=== PATIENT | female | born 1975 | race Two or more races ===

== ENCOUNTER 2017-08-01 09:57 | Day surgery (SDC) | payer OTHER ==
[~2017-08-01] VITALS: Ht 172.7 cm; Wt 131.0 kg
[~2017-08-01 09:57] MED LIST: ALL DAY ALLERGY10 M3 PO; BUSPAR15 MG PO; COZAAR50 MG PO; DIPROSONE 0.05%15 G1 TP; GLUCOPHAGE1000 MG PO; GLUCOTROL5 MG PO; LIPITOR20 MG PO; LODINE XL400 MG PO; NEURONTIN300 MG PO; PROTONIX40 MG PO; VENLAFAXINE HC150 M1 PO
[2017-08-01 10:33] VITALS: BP 127/81
[2017-08-01 11:07] LABS: POINT-OF-CARE METER ID UU14174212
[2017-08-01] MEDS ORDERED: NORCO 5/3251 TABLET PO (15:13)
[2017-08-01 15:36] LABS: POINT-OF-CARE METER ID UU13113675
[2017-08-01 16:46] VITALS: BP 122/70
[2017-08-01 17:24] VITALS: BP 126/68
== END 2017-08-01 17:33 | disposition home or self-care (01) ==
LOC: SDC 09:57
PROVIDERS: Obstetrics & Gynecology
PROC: 0UL78DZ Occlusion of Bilateral Fallopian Tubes with Intraluminal Device, Via Natural or Artificial Opening Endoscopic (ICD-10-PCS; principal; 2017-08-01)
DX: Z30.2 Encounter for sterilization (principal); N92.0 Excessive and frequent menstruation with regular cycle; I10 Essential (primary) hypertension; F41.8 Other specified anxiety disorders; E78.5 Hyperlipidemia, unspecified; M79.7 Fibromyalgia; E11.9 Type 2 diabetes mellitus without complications; K21.9 Gastro-esophageal reflux disease without esophagitis; E66.01 Morbid (severe) obesity due to excess calories; Z68.41 Body mass index [BMI] 40.0-44.9, adult; Z79.84 Long term (current) use of oral hypoglycemic drugs
CPT/HCPCS: 82948; 93005; J0131; J0330; J1170; J1885; J2250; J2405; J2710; J2765; J3010; S0020

== ENCOUNTER → 2017-12-30 | Outpatient (CLI) | payer OTHER ==
[~2017-12-30] VITALS: Ht 172.7 cm; Wt 127.9 kg
[~2017-12-30] MED LIST changes: +JANUVIA100 MG PO; +NON-ASPIRIN PA500 M1 PO; +NORCO 5/3251 TABLET PO
== END | disposition home or self-care (01) ==
LOC: AMB 12:00
PROVIDERS: Internal Medicine
DX: K62.1 Rectal polyp (principal); K21.9 Gastro-esophageal reflux disease without esophagitis; R19.7 Diarrhea, unspecified; R14.2 Eructation; Z82.49 Family history of ischemic heart disease and other diseases of the circulatory system; Z83.3 Family history of diabetes mellitus; Z83.49 Family history of other endocrine, nutritional and metabolic diseases
CPT/HCPCS: 82948; 88305; J2250

== ENCOUNTER 2018-03-09 16:28 | Emergency (ER) | payer OTHER ==
[~2018-03-09] VITALS: Ht 172.7 cm; Wt 127.9 kg
[2018-03-09 17:13] LABS: HEMATOCRIT 39.3 % (36.0-46.0); HEMOGLOBIN 12.8 G/DL (11.9-15.5); MCH 26.5 PG (29.0-34.0); MCHC 32.6 G/DL (30.0-36.0); MCV 81.4 FL (83-99); PLATELET COUNT 326 K/uL (156-360); RBC DIS.WIDTH-CV 15.6 % (11.8-14.6); RBC DIS.WIDTH-SD 46.5 % (39-53); RED BLOOD COUNT 4.83 M/uL (3.80-5.20)
[2018-03-09 17:24] LABS: CHLORIDE 104 mEq/L (99-109); SODIUM 139 mEq/L (136-147)
[2018-03-09 17:26] LABS: GLUCOSE 114 mg/dL (70-99)
[2018-03-09 17:29] LABS: SERUM ETHYL ALCOHOL < 10 mg/dL
[2018-03-09 17:30] LABS: CREATININE 0.7 mg/dL (0.6-1.3); GFR ESTIMATE (CALCULATED) > 59 mL/min/
[2018-03-09 17:31] LABS: UREA NITROGEN (BUN) 12 mg/dL (9-23)
[2018-03-09 17:37] LABS: AMPHETAMINE NEGATIVE (500 ng/mL); BARBITURATES NEGATIVE (200 ng/mL); BENZODIAZEPINES NEGATIVE (150 ng/mL); BUPRENORPHINE NEGATIVE (10 ng/mL); COCAINE NEGATIVE (150 ng/mL); METHADONE NEGATIVE (200 ng/mL); METHAMPHETAMINE NEGATIVE (500 ng/mL); OPIATES (MORPHINE) NEGATIVE (100 ng/mL); OXYCODONE NEGATIVE (100 ng/mL); PHENCYCLIDINE NEGATIVE (25 ng/mL); PROPOXYPHENE NEGATIVE (300 ng/mL); THC CANNABINOIDS NEGATIVE (50 ng/mL); TRICYCLIC ANTIDEPRESSANTS NEGATIVE (300 ng/mL)
[2018-03-09 18:49] VITALS: BP 147/89
== END 2018-03-09 18:51 | disposition home or self-care (01) ==
LOC: EME 16:28
DX: F32.9 Major depressive disorder, single episode, unspecified (principal); F41.9 Anxiety disorder, unspecified; I10 Essential (primary) hypertension; Z79.84 Long term (current) use of oral hypoglycemic drugs
CPT/HCPCS: 80048; 85027; 90839; 99281; 99285; G0480

== ENCOUNTER 2018-03-13 01:17 | Emergency (ER) | payer OTHER ==
[~2018-03-13] VITALS: Ht 172.7 cm; Wt 127.1 kg
[2018-03-13 01:52] LABS: CHLORIDE 103 mEq/L (99-109); POTASSIUM 4.2 mEq/L (3.7-5.4); SODIUM 138 mEq/L (136-147)
[2018-03-13 01:54] LABS: GLUCOSE 102 mg/dL (70-99)
[2018-03-13 01:58] LABS: CREATININE 0.8 mg/dL (0.6-1.3); GFR ESTIMATE (CALCULATED) > 59 mL/min/
[2018-03-13 01:59] LABS: UREA NITROGEN (BUN) 10 mg/dL (9-23)
[2018-03-13 02:05] LABS: TROP-I INTERPRETATION NEGATIVE; TROPONIN-I < 0.01 ng/mL (0.0-0.30)
[2018-03-13 03:46] LABS: BASOPHIL (%) 0.5 % (0-1); BASOPHIL COUNT 0.1 K/uL (0-0.1); EOSINOPHIL (%) 1.5 % (0-5); EOSINOPHIL COUNT 0.2 K/uL (0-0.3); HEMATOCRIT 40.6 % (36.0-46.0); HEMOGLOBIN 12.6 G/DL (11.9-15.5); IMMATURE GRANULOCYTE (%) 0.5 % (0.0-0.7); LYMPHOCYTE (%) 27.4 % (15-42); LYMPHOCYTE COUNT 3.5 K/uL (1.0-2.8); MCH 26.1 PG (29.0-34.0); MCV 84.1 FL (83-99); MONOCYTE (%) 8.6 % (3-12); MONOCYTE COUNT 1.1 K/uL (0-0.8); NEUTROPHIL (%) 61.5 % (45-76); NEUTROPHIL COUNT 7.9 K/uL (1.8-6.4); PLATELET COUNT 346 K/uL (156-360); RBC DIS.WIDTH-CV 15.8 % (11.8-14.6); RBC DIS.WIDTH-SD 48.1 % (39-53); RED BLOOD COUNT 4.83 M/uL (3.80-5.20); WHITE BLOOD COUNT 12.9 K/uL (4.1-10.2)
[2018-03-13 04:01] LABS: QUANTITATIVE HCG < 4.0 MIU/ML
[2018-03-13 05:55] VITALS: BP 144/93
== END 2018-03-13 06:23 | disposition home or self-care (01) ==
LOC: EME 01:17
PROVIDERS: Emergency Medicine
DX: G43.909 Migraine, unspecified, not intractable, without status migrainosus (principal); I10 Essential (primary) hypertension; E11.9 Type 2 diabetes mellitus without complications; Z79.84 Long term (current) use of oral hypoglycemic drugs; M79.7 Fibromyalgia; F32.9 Major depressive disorder, single episode, unspecified; F41.9 Anxiety disorder, unspecified; F31.9 Bipolar disorder, unspecified
CPT/HCPCS: 70496; 70498; 80048; 84484; 84702; 85025; 93005; 99281; 99284; J0780; J1200; J7040